=== PATIENT | female | born 1995 | race Caucasian/White ===

== ENCOUNTER 2021-02-03 20:39 | Emergency (ER) | payer OTHER ==
[~2021-02-03] VITALS: Ht 157.5 cm; Wt 63.6 kg
[2021-02-04 01:48] LABS: BILIRUBIN,URINE NEG (NEG); CLARITY,URINE CLOUDY; COLOR,URINE YELLOW; GLUCOSE,URINE NEG (NEG); NITRITE,URINE POS (NEG)
[2021-02-04 01:49] LABS: BACTERIA,URINE MANY /HPF (0-FEW); SQUAMOUS EPITHELIAL CELL,UR FEW /LPF
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
[2021-02-04] MEDS ORDERED: SULF1TAB24 PO (02:12)
[2021-02-04] MEDS ORDERED: ORPHENADRINE CITRATE 60 MG/2 ML VIAL. ONE (02:26)
[2021-02-04] MEDS ORDERED: KETOROLAC 60 MG/2 ML VIAL. IM ONE ×2 (02:26→03:00)
[2021-02-04] MEDS ORDERED: SMZ/TMP 800/160MG TABLET. PO ONE (02:30)
[2021-02-04 02:45] VITALS: BP 140/84
[2021-02-04] MEDS ORDERED: ORPHENADRINE CITRATE 60 MG/2 ML VIAL. IM ONE (03:00)
== END 2021-02-04 02:45 | disposition home or self-care (01) ==
LOC: ER 20:39
DX: S16.1XXA Strain of muscle, fascia and tendon at neck level, initial encounter (principal); S39.012A Strain of muscle, fascia and tendon of lower back, initial encounter; S20.212A Contusion of left front wall of thorax, initial encounter; N39.0 Urinary tract infection, site not specified; V49.59XA Passenger injured in collision with other motor vehicles in traffic accident, initial encounter; Y93.89 Activity, other specified; Y92.89 Other specified places as the place of occurrence of the external cause; Y99.8 Other external cause status
CPT/HCPCS: 71046; 72125; 72128; 72131; 81001; 81025; 87086; 96372; 99285; J1885; J2360; 87077; 87186